=== PATIENT | male | born 1990 | race Caucasian/White ===

== ENCOUNTER 2022-12-13 07:30 | Emergency (ER) | payer OTHER ==
[2022-12-13 07:35] VITALS: BP 151/104; PULSE 66; RESP 20; TEMP 98.9; BMI 26.6
[2022-12-13] MEDS ORDERED: IBUPROFEN 600 MG TABLET (FP) PO ONE ×2 (07:39→07:54)
== END 2022-12-13 07:57 | disposition home or self-care (01) ==
LOC: FER 07:30
DX: M25.512 Pain in left shoulder (principal)
CPT/HCPCS: 99282-25